=== PATIENT | female | born 1975 | race African-American/Black ===

== ENCOUNTER 2019-03-15 07:31 | Emergency (ER) | payer OTHER ==
[2019-03-15 07:45] VITALS: BP 122/79; PULSE 72; TEMP 98.1; BMI 32.5
--- NOTE | 2019-03-15 08:32 | PDOC ---
History of Present Illness - General Chief Complaint: Ear Problem Stated Complaint: Ear Problem Time Seen by Provider: 03/15/19 08:26 History Source: Patient Exam Limitations: Clinical Condition - History of Present Illness Initial Comments: 03/15/19 08:35 Patient with no significant past medical history present with complaint of 2 day history of right ear pain with feeling of water in right ear and report cleaning the right ear with Q-tip. Denies fever, chills, headache, dizziness, nausea or vomiting. Denies any other symptoms Timing/Duration: 24 hours Past History - Past Medical History Allergies/Adverse Reactions: Allergies Allergy/AdvReac Type Severity Reaction Status Date / Time No Known Allergies Allergy Verified 03/15/19 07:42 Home Medications: Ambulatory Orders Medroxyprogesterone Acet [Depo-Provera] 150 mg IM ASDIR 03/08/15 Oxycodone HCl/Acetaminophen [Percocet 5-325 mg Tablet -] 1 - 2 tab PO Q6H #7 tab 03/10/15 Neomycin/Polymyxin B/Hydrocort [Lrmkwpyq-Alnwbetvd-Db Ear Susp] 4 drop OT Q6H 5 Days #1 bottle 03/15/19 Anemia: No Asthma: No Cancer: No Cardiac Disorders: No CVA: No COPD: No CHF: No Dementia: No Diabetes: No GI Disorders: No Disorders: No HTN: No Hypercholesterolemia: No Liver Disease: No Seizures: No Thyroid Disease: No - Surgical History Abdominal Surgery: No Appendectomy: No Cardiac Surgery: No Cholecystectomy: No Lung Surgery: No Neurologic Surgery: No Orthopedic Surgery: No - Immunization History Immunization Up to Date: Yes - Suicide/Smoking/Psychosocial Hx Smoking History: Never smoked Have you smoked in the past 12 months: No Hx Alcohol Use: No Drug/Substance Use Hx: No Substance Use Type: None Hx Substance Use Treatment: No Review of Systems - Review of Systems Able to Perform ROS?: Yes Is the patient limited Welsh proficient: No Constitutional: No: Chills, Fever, Malaise HEENTM: Yes: Symptoms Reported, See HPI, Ear Pain (right ear). No: Eye Pain, Blurred Vision, Tearing, Recent change in vision, Double Vision, Cataracts, Ocular Prothesis, Ear Discharge, Nose Pain, Nose Congestion, Tinnitus, Nose Bleeding, Hearing Loss, Throat Pain, Throat Swelling, Mouth Pain, Dental Problems, Difficulty Swallowing, Mouth Swelling, Other Respiratory: No: Symptoms reported, See HPI, Cough, Orthopnea, Shortness of Breath, SOB with Exertion, SOB at Rest, Stridor, Wheezing, Productive cough, Hemoptysis, Other Cardiac (ROS): No: Symptoms Reported, See HPI, Chest Pain, Edema, Irregular Heart Rate, Lightheadedness, Palpitations, Syncope, Chest Tightness, Other ABD/GI: No: Nausea, Vomiting Neurological: Yes: Symptoms reported. No: Dizziness All Other Systems: Reviewed and Negative *Physical Exam - Vital Signs Last Vital Signs Temp Pulse Resp BP Pulse Ox 98.1 F 72 18 122/79 100 03/15/19 07:42 03/15/19 07:42 03/15/19 07:42 03/15/19 07:42 03/15/19 07:42 - Physical Exam Comments: 03/15/19 08:38 GENERAL: Well developed, well nourished. Awake and alert. No acute distress. HEENT: Mild erythema in right external ear canal. Left ear canal normal. Tympanic membrane normal bilateral. Normocephalic, atraumatic. PERRLA, EOMI. No conjunctival pallor. Sclera are non-icteric. Moist mucous membranes. Oropharynx is clear. NECK: Supple. Full ROM. CARDIOVASCULAR: Regular rate and rhythm. No murmurs, rubs, or gallops. PULMONARY: No evidence of respiratory distress. Lungs clear to auscultation bilaterally. No wheezing, rales or rhonchi. MUSCULOSKELETAL Normal range of motion at all joints. SKIN: Warm and dry. Normal capillary refill. No rashes. NEUROLOGICAL: Alert, awake, appropriate. Gait is normal without ataxia. PSYCHIATRIC: Cooperative. Good eye contact. Appropriate mood General Appearance: Yes: Nourished, Appropriately Dressed. No: Apparent Distress Medical Decision Making - Medical Decision Making 03/15/19 08:36 Patient with no significant past medical history present with complaint of 2 day history of right ear pain with feeling of water in right ear and report cleaning the right ear with Q-tip. Denies fever, chills, headache, dizziness, nausea or vomiting. Denies any other symptoms Exam significant for mild erythema and external ear canal with normal tympanic membrane and patient afebrile. Symptoms likely otitis externa. Patient be discharged home on neomycin with polymycin ear drops with ENT follow-up as needed *DC/Admit/Observation/Transfer Diagnosis at time of Disposition: Right otitis externa Qualifiers: Otitis externa type: unspecified type Chronicity: acute Qualified Code(s): H60.501 - Unspecified acute noninfective otitis externa, right ear - Discharge Dispostion Disposition: HOME Condition at time of disposition: Stable Decision to Admit order: No - Prescriptions Prescriptions: Neomycin/Polymyxin B/Hydrocort [Nqfgcmjm-Gbgpvswya-Be Ear Susp] 4 drop OT Q6H 5 Days #1 bottle - Referrals Referrals: Matthew Kelley MD [Staff Physician] - - Patient Instructions Printed Discharge Instructions: DI for Otitis Externa Additional Instructions: use medications as prescribed. Keep right ear clean and dry. Follow-up with referred ENT if no improvement in 4 days - Post Discharge Activity
== END 2019-03-15 08:38 | disposition home or self-care (01) ==
LOC: JERFT 07:31
DX: H60.501 Unspecified acute noninfective otitis externa, right ear (principal)
CPT/HCPCS: 99281-25

== ENCOUNTER 2019-04-30 15:22 | Emergency (ER) | payer OTHER ==
--- NOTE | 2019-04-30 15:26 | PDOC ---
Rapid Medical Evaluation Chief Complaint: Eye Problem Time Seen by Provider: 04/30/19 15:24 Medical Evaluation: Allergies Allergy/AdvReac Type Severity Reaction Status Date / Time No Known Allergies Allergy Verified 03/15/19 07:42 04/30/19 15:25 I have performed a brief in-person evaluation of this patient. The patient presents with a chief complaint of:[place] eye b/l Pertinent physical exam findings:mild conjunctivitis injection b/l this am I have ordered the following:nothing The patient will proceed to the ED for further evaluation. Discharge Disposition - Diagnosis Conjunctivitis Qualifiers: Conjunctivitis type: unspecified Laterality: bilateral Qualified Code(s): H10.9 - Unspecified conjunctivitis - Discharge Dispostion Condition at time of disposition: Stable - Referrals - Patient Instructions - Post Discharge Activity
[2019-04-30 15:27] VITALS: BP 131/88; PULSE 79; TEMP 98.4; BMI 32.9
--- NOTE | 2019-04-30 15:54 | PDOC ---
History of Present Illness - General Chief Complaint: Eye Problem Stated Complaint: PINK EYE Time Seen by Provider: 04/30/19 15:24 History Source: Patient Exam Limitations: No Limitations Past History - Past Medical History Allergies/Adverse Reactions: Allergies Allergy/AdvReac Type Severity Reaction Status Date / Time No Known Allergies Allergy Verified 03/15/19 07:42 Home Medications: Ambulatory Orders Medroxyprogesterone Acet [Depo-Provera] 150 mg IM ASDIR 03/08/15 Oxycodone HCl/Acetaminophen [Percocet 5-325 mg Tablet -] 1 - 2 tab PO Q6H #7 tab 03/10/15 Neomycin/Polymyxin B/Hydrocort [Rugbwyat-Wsibsbtnh-Zo Ear Susp] 4 drop OT Q6H 5 Days #1 bottle 03/15/19 Anemia: No Asthma: No Cancer: No Cardiac Disorders: No CVA: No COPD: No CHF: No Dementia: No Diabetes: No GI Disorders: No Disorders: No HTN: No Hypercholesterolemia: No Liver Disease: No Seizures: No Thyroid Disease: No - Surgical History Abdominal Surgery: No Appendectomy: No Cardiac Surgery: No Cholecystectomy: No Lung Surgery: No Neurologic Surgery: No Orthopedic Surgery: No - Immunization History Immunization Up to Date: Yes - Suicide/Smoking/Psychosocial Hx Smoking History: Never smoked Have you smoked in the past 12 months: No Information on smoking cessation initiated: No Hx Alcohol Use: No Drug/Substance Use Hx: No Substance Use Type: None Hx Substance Use Treatment: No *Physical Exam - Vital Signs Last Vital Signs Temp Pulse Resp BP Pulse Ox 98.4 F 79 18 131/88 100 04/30/19 15:23 04/30/19 15:23 04/30/19 15:23 04/30/19 15:23 04/30/19 15:23 - Physical Exam General Appearance: No: Apparent Distress HEENT: positive: EOMI, MAYTE, Other (+injection along medial aspect of L eye, perilimbal sparing, R eye unremarkable, no drainage noted, vision 20/20 R eye, 20/20 L eye) Neurologic: positive: Alert, Normal Mood/Affect Medical Decision Making - Medical Decision Making 43 y/o F with no sig pmh presents with L eye redness from this morning with mild itching, very slight whitish discharge. Denies eye pain, blurred vision, photophobia, trauma to eye, FB sensation in eye, headache, n/v, rhinorrhea, congestion, sneezing. Likely viral conjunctivitis 04/30/19 15:51 *DC/Admit/Observation/Transfer Diagnosis at time of Disposition: Conjunctivitis Qualifiers: Conjunctivitis type: unspecified Laterality: bilateral Qualified Code(s): H10.9 - Unspecified conjunctivitis - Discharge Dispostion Disposition: HOME Condition at time of disposition: Stable - Referrals - Patient Instructions Printed Discharge Instructions: DI for Conjunctivitis Additional Instructions: Thank you for choosing [facility]. It was a pleasure taking care of you. Apply cool compresses to eye as needed Avoid touching eye as it can spread Wash hands if you do touch your eye Return to the Emergency Department if your symptoms worsen or persist, you have fever, eye pain, blurred vision, headache, vomiting or other concerning symptoms. - Post Discharge Activity
== END 2019-04-30 16:10 | disposition home or self-care (01) ==
LOC: JERFT 15:22
PROC: 4A07X0Z Measurement of Visual Acuity, External Approach (ICD-10-PCS; principal; 2019-04-30)
DX: H10.32 Unspecified acute conjunctivitis, left eye (principal)
CPT/HCPCS: 99281-25

== ENCOUNTER 2020-03-02 10:27 | Emergency (ER) | payer OTHER ==
--- NOTE | 2020-03-02 10:32 | PDOC ---
Rapid Medical Evaluation Chief Complaint: Bone Injury Time Seen by Provider: 03/02/20 10:28 Medical Evaluation: Allergies Allergy/AdvReac Type Severity Reaction Status Date / Time No Known Allergies Allergy Verified 03/15/19 07:42 03/02/20 10:31 I performed a brief in-person evaluation of this patient. Pt is a 44 y/o female with no medical history who presents with a L wrist injury after a trip and fall yesterday. She denies any numbness or tingling. She is R hand dominant. Pertinent physical exam findings: pain to palpation to the L wrist, moving all fingers, radial pulse palpable I have ordered the following: L wrist xray Patient to proceed to ED for further evaluation. Discharge Disposition - Diagnosis Left wrist injury - Referrals - Patient Instructions - Post Discharge Activity
[2020-03-02 10:33] VITALS: BP 168/108; PULSE 91; TEMP 98.5; BMI 35.1
[2020-03-02] MEDS ORDERED: IBUPROFEN 400 MG TABLET (FP) PO ONE ×2 (10:53→10:59)
--- NOTE | 2020-03-02 10:58 | PDOC ---
History of Present Illness - General Chief Complaint: Bone Injury Stated Complaint: LT WRIST INJURY Time Seen by Provider: 03/02/20 10:28 History Source: Patient Exam Limitations: Clinical Condition - History of Present Illness Initial Comments: 03/02/20 10:53 Patient with no significant past medical history present with complaint of left wrist pain status post slip and fall on outstretched hand yesterday. Reporting mild pain to ulnar aspect of left wrist with increased pain to radial aspect of left wrist. Denies difficulty moving wrist. Denies numbness or tingling sensa tion. Patient also reported mild pain to muscles of upper arm from fall. Denies hitting head or loss of consciousness. Patient has not taken anything for pain. Denies any other symptoms Occurred: reports: yesterday Past History - Medical History Allergies/Adverse Reactions: Allergies Allergy/AdvReac Type Severity Reaction Status Date / Time No Known Allergies Allergy Verified 03/02/20 10:33 Home Medications: Ambulatory Orders Medroxyprogesterone Acet [Depo-Provera] 150 mg IM ASDIR 03/08/15 Oxycodone HCl/Acetaminophen [Percocet 5-325 mg Tablet -] 1 - 2 tab PO Q6H #7 tab 03/10/15 Neomycin/Polymyxin B/Hydrocort [Ednvmkst-Iqndllfny-Ou Ear Susp] 4 drop OT Q6H 5 Days #1 bottle 03/15/19 Arm Brace [Wrist Brace] 1 each MC DAILY #1 each 03/02/20 Ibuprofen [Motrin -] 600 mg PO Q8H PRN #20 tablet 03/02/20 Anemia: No Asthma: No Cancer: No Cardiac Disorders: No CVA: No COPD: No CHF: No Dementia: No Diabetes: No GI Disorders: No Disorders: No HTN: No Hypercholesterolemia: No Liver Disease: No Seizures: No Thyroid Disease: No - Surgical History Abdominal Surgery: No Appendectomy: No Cardiac Surgery: No Cholecystectomy: No Lung Surgery: No Neurologic Surgery: No Orthopedic Surgery: No - Immunization History Immunization Up to Date: Yes - Psycho-Social/Smoking History Smoking History: Never smoked Have you smoked in the past 12 months: No Information on smoking cessation initiated: No - Substance Abuse Hx (Audit-C & DAST Scrn) How often the patient has a drink containing alcohol: Never Score: In Men: 4 or > Positive; In Women: 3 or > Positive: 0 Screen Result (Pos requires Nsg. Audit-10AR): Negative In the last yr the pt used illegal drug/Rx for NonMed reason: No Score: Yes response is considered Positive: 0 Screen Result (Positive result requires Nsg. DAST-10): Negative Review of Systems - Review of Systems Able to Perform ROS?: Yes Is the patient limited Beninese proficient: No Constitutional: No: Chills, Fever, Malaise HEENTM: No: Symptoms Reported, See HPI, Eye Pain, Blurred Vision, Tearing, Recent change in vision, Double Vision, Cataracts, Ear Pain, Ocular Prothesis, Ear Discharge, Nose Pain, Nose Congestion, Tinnitus, Nose Bleeding, Hearing Loss, Throat Pain, Throat Swelling, Mouth Pain, Dental Problems, Difficulty Swallowing, Mouth Swelling, Other Respiratory: No: Symptoms reported, See HPI, Cough, Orthopnea, Shortness of Breath, SOB with Exertion, SOB at Rest, Stridor, Wheezing, Productive cough, Hemoptysis, Other Cardiac (ROS): No: Symptoms Reported Musculoskeletal: Yes: Symptoms Reported, See HPI, Joint Pain (Left wrist pain), Joint Swelling (Left wrist), Muscle Pain (Left upper arm pain) Integumentary: No: Symptoms Reported, Bruising, Change in Color Neurological: No: Numbness, Paresthesia, Tingling All Other Systems: Reviewed and Negative *Physical Exam - Vital Signs Last Vital Signs Temp Pulse Resp BP Pulse Ox 98.5 F 91 H 17 168/108 H 100 03/02/20 10:30 03/02/20 10:30 03/02/20 10:30 03/02/20 10:30 03/02/20 10:30 - Physical Exam 03/02/20 10:59 GENERAL: Well developed, well nourished. Awake and alert. No acute distress. PULMONARY: No evidence of respiratory distress. MUSCULOSKELETAL : Mild tenderness to ulnar aspect of left wrist with increased tenderness to radial aspect of left wrist which is worse when on a rotation of left wrist. No visible deformity. No swelling to the wrist. No bruising or ecchymosis to skin. Mild tenderness to bicep muscle of left upper arm with no visible deformity or injury. SKIN: Warm and dry. Normal capillary refill. No bruising or ecchymosis NEUROLOGICAL: Alert, awake, appropriate. No motor deficits in the lower extremities. Gait is normal without ataxia. PSYCHIATRIC: Cooperative. Good eye contact. Appropriate mood and affect. General Appearance: Yes: Nourished, Appropriately Dressed. No: Apparent Distress Medical Decision Making - Medical Decision Making 03/02/20 10:54 Patient with no significant past medical history present with complaint of left wrist pain status post slip and fall on outstretched hand yesterday. Reporting mild pain to ulnar aspect of left wrist with increased pain to radial aspect of left wrist. Denies difficulty moving wrist. Denies numbness or tingling sensation. Patient also reported mild pain to muscles of upper arm from fall. Denies hitting head or loss of consciousness. Patient has not taken anything for pain. Denies any other symptoms Exam significant for mild tenderness to ulnar aspect of left wrist with increased pain to radial aspect of left wrist. No visible deformity. Mild swelling to left wrist. Full range of motion of left wrist. Normal human resource manager strength. X-ray of left wrist and hand shows no acute fracture or dislocation. Patient symptoms likely wrist sprain. Left wrist wrapped with Anirudh bandage. Ibuprofen 800 mg p.o. ordered for pain. Patient stable for discharge and will be prescribed wrist brace and advised to do warm compresses and NSAIDs with orthopedics follow-up as needed Discharge - Discharge Information Problems reviewed: Yes Clinical Impression/Diagnosis: Left wrist injury Qualifiers: Encounter type: initial encounter Qualified Code(s): S69.92XA - Unspecified injury of left wrist, hand and finger(s), initial encounter Condition: Stable Disposition: HOME - Admission No - Additional Discharge Information Prescriptions: Ibuprofen [Motrin -] 600 mg PO Q8H PRN #20 tablet PRN Reason: pain Arm Brace [Wrist Brace] 1 each DAILY #1 each - Follow up/Referral Referrals: David Fleming MD [Staff Physician] - - Patient Discharge Instructions Patient Printed Discharge Instructions: DI for Wrist Sprain Additional Instructions: X-ray of the left wrist and hand shows no acute fracture or dislocation. Your pain is likely from wrist sprain. Use provided Anirudh bandage to help support wrist. You have been prescribed wrist brace to help support wrist. Take prescribed Motrin as needed for pain. Apply warm compresses to wrist as needed for pain and swelling. Follow-up referred orthopedic hand specialist if symptoms does not improve in 4 days - Post Discharge Activity
== END 2020-03-02 11:06 | disposition home or self-care (01) ==
LOC: JERFT 10:27
DX: S69.92XA Unspecified injury of left wrist, hand and finger(s), initial encounter (principal); W01.0XXA Fall on same level from slipping, tripping and stumbling without subsequent striking against object, initial encounter
CPT/HCPCS: 73110-TC-LT-FY; 99283-25

== ENCOUNTER 2021-12-08 13:41 | Emergency (ER) | payer OTHER ==
[2021-12-08 13:48] VITALS: TEMP 97.8; BMI 33.7
[2021-12-08] MEDS ORDERED: morphine CARPU-JECT 4 MG/1 ML DISP.SYRIN IVPUSH ONE (14:08)
[2021-12-08] MEDS ORDERED: ONDANSETRON 4 MG/2 ML VIAL IVPUSH ONE (14:08)
[2021-12-08] MEDS ORDERED: SODIUM CHLORIDE 1,000 ML IV STA (14:08)
[2021-12-08] MEDS ORDERED: FAMOTIDINE 20 MG/50 ML IVPB 50 ML IVPB ONE (14:08)
[2021-12-08] MEDS ORDERED: ACETAMINOPHEN 1000 MG/100 ML BAG IVPB ONE (14:08)
[2021-12-08] MEDS ORDERED: FAMOTIDINE/PF 20 MG/2 ML VIAL IVPB ONE (14:15)
[2021-12-08] MEDS ORDERED: ONDANSETRON 4 MG/2 ML VIAL ONE (14:39)
[2021-12-08] MEDS ORDERED: morphine SULFATE 4 MG/ML VIAL ONE (14:39)
[2021-12-08] MEDS ORDERED: ACETAMINOPHEN INJECTION 100 ML IVPB ONE (14:39)
[2021-12-08 14:59] LABS: BASO % 0.5 % (0-2.0); EOS % 0.7 % (0-4.5); HEMATOCRIT 38.7 % (32.4-45.2); MCH 30.9 pg (25.7-33.7); MCHC 33.6 g/dl (32.0-36.0); MEAN CELL VOLUME 92.1 fl (80-96); MEAN PLT VOLUME 9.3 fl (7.5-11.1); MONO % 7.7 % (3.8-10.2); NEUT % 69.1 % (42.8-82.8); PLATELET COUNT 220 10^3/uL (134-434); RDW 12.9 % (11.6-15.6); WHITE BLOOD COUNT 6.1 K/mm3 (4.0-10.0)
[2021-12-08 15:02] LABS: URINE APPEARANCE CLEAR; URINE BILIRUBIN NEGATIVE (NEGATIVE); URINE COLOR DK YELLOW; URINE GLUCOSE (UA) NEGATIVE (NEGATIVE); URINE KETONE TRACE (NEGATIVE); URINE LEUK ESTERASE NEGATIVE (NEGATIVE); URINE NITRITE NEGATIVE (NEGATIVE); URINE PROTEIN NEGATIVE (NEGATIVE); URINE UROBILINOGEN 0.2 mg/dL (0.2-1.0)
[2021-12-08 15:07] LABS: INR 1.03 (0.83-1.09); PROTHROMBIN TIME (PATIENT) 11.9 SEC (9.7-13.0)
[2021-12-08 15:09] LABS: ACTIVATED PTT 28.4 SECONDS (25.2-36.5)
[2021-12-08 15:16] LABS: ALBUMIN 4.1 g/dl (3.4-5.0); CALCIUM 9.1 mg/dL (8.5-10.1); MAGNESIUM 1.8 mg/dL (1.8-2.4)
[2021-12-08 15:17] LABS: BLOOD UREA NITROGEN 9.8 mg/dL (7-18)
[2021-12-08 15:19] LABS: CREATININE 0.8 mg/dL (0.55-1.3); PHOSPHOROUS 2.4 mg/dL (2.5-4.9)
[2021-12-08 15:21] LABS: BILIRUBIN,TOTAL 1.3 mg/dL (0.2-1); TOT PROT 7.6 g/dl (6.4-8.2)
[2021-12-08] MEDS ORDERED: FAMOTIDINE 10 MG/ML VIAL IVPB ONE (15:23)
[2021-12-08 15:45] VITALS: BP 120/83; PULSE 66
== END 2021-12-08 15:47 | disposition home or self-care (01) ==
LOC: JER 13:41
PROC: 3E0333Z Introduction of Anti-inflammatory into Peripheral Vein, Percutaneous Approach (ICD-10-PCS; principal; 2021-12-08)
PROC: 3E033GC Introduction of Other Therapeutic Substance into Peripheral Vein, Percutaneous Approach (ICD-10-PCS; 2021-12-08)
PROC: 3E033NZ Introduction of Analgesics, Hypnotics, Sedatives into Peripheral Vein, Percutaneous Approach (ICD-10-PCS; 2021-12-08)
PROC: 3E033GC Introduction of Other Therapeutic Substance into Peripheral Vein, Percutaneous Approach (ICD-10-PCS; 2021-12-08)
PROC: 3E0337Z Introduction of Electrolytic and Water Balance Substance into Peripheral Vein, Percutaneous Approach (ICD-10-PCS; 2021-12-08)
DX: K59.00 Constipation, unspecified (principal)
CPT/HCPCS: 36415; 80053; 81003; 83690; 83735; 84100; 84703; 85025; 85610; 85730; 87086; 99284-25

== ENCOUNTER 2022-12-11 06:25 | Emergency (ER) | payer OTHER ==
[2022-12-11 06:59] VITALS: BP 138/87; PULSE 87; RESP 20; TEMP 98.1; BMI 31.6
[2022-12-11 08:16] LABS: URINE APPEARANCE CLEAR; URINE BILIRUBIN NEGATIVE (NEGATIVE); URINE COLOR YELLOW; URINE GLUCOSE (UA) NEGATIVE (NEGATIVE); URINE KETONE NEGATIVE (NEGATIVE); URINE LEUK ESTERASE NEGATIVE (NEGATIVE); URINE NITRITE NEGATIVE (NEGATIVE); URINE PROTEIN NEGATIVE (NEGATIVE); URINE UROBILINOGEN 0.2 mg/dL (0.2-1.0)
[2022-12-11 08:19] LABS: HCG,QUALITATIVE URINE Negative
== END 2022-12-11 10:22 | disposition home or self-care (01) ==
LOC: JER 06:25
DX: B37.31 Acute candidiasis of vulva and vagina (principal); L29.2 Pruritus vulvae
CPT/HCPCS: 36415; 81003; 84703; 87070; 87086; 87205; 87491; 87591; 87661; 99283-25